=== PATIENT | male | born 2000 | race American Indian/Alaskan Native ===

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

== ENCOUNTER 2020-10-26 21:22 | Emergency (ER) | payer OTHER ==
[~2020-10-26] VITALS: Ht 177.8 cm; Wt 81.3 kg
== END 2020-10-26 22:29 | disposition home or self-care (01) ==
LOC: ED 21:22
DX: M24.411 Recurrent dislocation, right shoulder (principal)
CPT/HCPCS: 23650; 73030; 99283-25; J2250; J3010